=== PATIENT | female | born 1955 | race Caucasian/White ===

== ENCOUNTER 2020-01-05 09:08 | Emergency (ER) | payer OTHER ==
[~2020-01-05] VITALS: Ht 154.9 cm; Wt 81.8 kg
[2020-01-05 09:14] VITALS: BP 149/86; Ht 154.9 cm; Wt 81.8 kg
== END 2020-01-05 12:15 | disposition home or self-care (01) ==
LOC: ED 09:08
DX: H60.12 Cellulitis of left external ear (principal); L21.9 Seborrheic dermatitis, unspecified
CPT/HCPCS: J0696; J7512